=== PATIENT | male | born 1955 | race African-American/Black ===

== ENCOUNTER 2021-10-14 11:26 | Inpatient (IN) | payer MEDICAID, OTHER ==
[~2021-10-14] VITALS: Ht 180.3 cm; Wt 67.5 kg
[2021-10-14] MEDS: POTASSIUM CHL 10MEQ/50ML 50 ML IV SCH ×6 (00:35→22:15)
[2021-10-14] MEDS: CHOLESTYRAMINE 4 GM POWDER PO SCH (01:30)
[2021-10-14] MEDS ORDERED: ONDANSETRON HCL 4 MG/2 ML VIAL IV ONE (12:15)
[2021-10-14] MEDS ORDERED: PANTOPRAZOLE 40 MG/10 ML VIAL INJ IV ONE ×3 (12:15→21:45)
[2021-10-14] MEDS ORDERED: SODIUM CHLORIDE 0.9% 500 ML IVB ONE (12:15)
[2021-10-14 14:22] LABS: Nucleated Red Blood Cells % 0.1 %; Red Cell Distribution Width 14.5 % (11.8-14.3)
[2021-10-14 14:26] LABS: Basophils # (auto) 0.1 10 ^3/uL (0-0.2); Basophils % (auto) 0.7 % (0.0-2.0); Eosinophils # (auto) 0.2 10 ^3/uL (0-0.8); Eosinophils % (auto) 1.2 % (0.0-7.0); Hematocrit 25.4 % (41.0-53.0); Hemoglobin 8.8 g/dL (13.5-17.5); Lymphocytes # (auto) 2.3 10 ^3/uL (0.4-5.4); Lymphocytes % (auto) 14.9 % (10.0-50.0); Mean Corpuscular Hemoglobin 39.2 pg (28.0-32.0); Mean Corpuscular Hgb Conc. 34.6 g/dL (32.0-36.0); Mean Corpuscular Volume 113.3 fL (80.0-100.0); Monocytes % (auto) 12.8 % (0.0-12.0); Neutrophils # (auto) 10.9 10 ^3/uL (1.6-8.6); Neutrophils % (auto) 70.4 % (37.0-80.0); Red Blood Cells 2.24 10^6/uL (4.5-5.90); White Blood Cell 15.4 10^3/uL (4.4-10.8)
[2021-10-14 14:56] LABS: Albumin 2.1 g/dL (3.4-5.0); Calcium 9.2 mg/dL (8.5-10.1)
[2021-10-14 14:57] LABS: INR 1.31 (0.9-1.15); Partial Thromboplastin Time 26.8 sec (23.6-33.0)
[2021-10-14 15:47] LABS: BUN/Creatinine Ratio 22.4
[2021-10-14 15:48] LABS: Bilirubin, Total 25.2 mg/dL (0.2-1.0); Total Protein 5.6 g/dL (6.4-8.2)
[2021-10-14 15:53] LABS: Potassium 2.9 mmol/L (3.5-5.1)
[2021-10-14] MEDS ORDERED: NITROGLYCERIN 0.4 MG SL TAB SL PRN ×2 (19:15→22:00)
[2021-10-14] MEDS: MORPHINE SULFATE INJECTION 2 MG/ML SYRG IV PRN (20:19)
[2021-10-14] MEDS: D5W/ SOD CHL 0.9%/KCL 20MEQ 1,000 ML IV SCH (21:49)
[2021-10-14] MEDS ORDERED: LORazepam 0.5 MG TAB PO PRN (22:00)
[2021-10-14] MEDS ORDERED: PIPERACILLIN-TAZOB 3.375GM 100 ML IV SCH ×2 (22:00→22:23)
[2021-10-14] MEDS ORDERED: MORPHINE SULFATE INJECTION 2 MG/ML SYRG IV PRN (22:00)
[2021-10-14] MEDS ORDERED: CHOLESTYRAMINE 4 GM POWDER PO ONE (22:00)
[2021-10-14] MEDS ORDERED: ALUM & MAG HYDROX-SIMETH LIQ(MAALOX) 30 ML PO PRN (22:00)
[2021-10-14] MEDS ORDERED: DOCUSATE SOD 100 MG CAP PO PRN (22:00)
[2021-10-14] MEDS ORDERED: PIPERACILLIN-TAZOB 2.25GM 50 ML IV ONE (22:00)
[2021-10-14] MEDS: PANTOPRAZOLE 40 MG/10 ML VIAL INJ IV SCH (22:30)
[2021-10-14 22:35] VITALS: BP 105/65
[2021-10-14 23:11] LABS: HDL Cholesterol 10 mg/dL (40-59); Triglycerides 222 mg/dL (< 150)
[2021-10-14 23:26] LABS: Urine Bacteria FEW /hpf (None Seen); Urine Blood TRACE /uL (Negative); Urine Mucus FEW (None Seen); Urine Specific Gravity 1.018 (1.001-1.035); Urine WBC 11 /hpf (0 - 3)
[2021-10-14 23:40] LABS: Cholesterol 460 mg/dL (< 200); LDL Cholesterol > 300 mg/dL (< 100)
[2021-10-14 23:58] LABS: Alcohol, Urine < 3.0 mg/dL (0-10); Amphetamine Screen, Urine POSITIVE (NEGATIVE); Barbiturate Scree,Urine NEGATIVE (NEGATIVE); Benzodiazephine Screen, Urine NEGATIVE (NEGATIVE); Cannabinoid Screen, Urine POSITIVE (NEGATIVE); Opiate Scree,Urine NEGATIVE (NEGATIVE); Phencyclidine Screen, Urine NEGATIVE (NEGATIVE)
[2021-10-15] VITALS (8 sets, daily range): BP systolic 95–133; BP diastolic 44–79
[2021-10-15 00:06] LABS: Cocaine Screen, Urine NEGATIVE (NEGATIVE)
[2021-10-15] MEDS: POTASSIUM CHL 10MEQ/50ML 50 ML IV SCH (00:15)
[2021-10-15 09:10] LABS: Mean Corpuscular Hemoglobin 38.9 pg (28.0-32.0); Mean Corpuscular Hgb Conc. 34.2 g/dL (32.0-36.0); Red Blood Cells 1.63 10^6/uL (4.5-5.90); White Blood Cell 18.5 10^3/uL (4.4-10.8)
[2021-10-15] MEDS: PANTOPRAZOLE 40 MG/10 ML VIAL INJ IV SCH ×2 (09:10→21:38)
[2021-10-15] MEDS: PIPERACILLIN-TAZOB 3.375GM 100 ML IV SCH ×3 (09:10→20:09)
[2021-10-15 09:15] LABS: Hematocrit 18.6 % (41.0-53.0); Mean Corpuscular Volume 113.9 fL (80.0-100.0); Red Cell Distribution Width 14.8 % (11.8-14.3)
[2021-10-15 09:21] LABS: INR 1.38 (0.9-1.15); Partial Thromboplastin Time 29.3 sec (23.6-33.0)
[2021-10-15 09:27] LABS: Albumin 1.7 g/dL (3.4-5.0); Calcium 8.6 mg/dL (8.5-10.1); Magnesium 2.8 mg/dL (1.6-2.6); Potassium 3.9 mmol/L (3.5-5.1)
[2021-10-15 09:29] LABS: BUN/Creatinine Ratio 28.7
[2021-10-15 09:31] LABS: Band Neutrophils % (manual) 0; Basophils % (manual) 0 (0.0-2.0); Blast Cells 0; Hemoglobin 6.3 g/dL (13.5-17.5); Lymphocytes % (manual) 0 (10.0-50.0); Myelocytes % 0; Promyelocytes % 0; Reactive Lymphocytes 0
[2021-10-15 09:54] LABS: Bilirubin, Total 18.9 mg/dL (0.2-1.0); Phosphorus 3.3 mg/dL (2.5-4.90); Total Protein 4.9 g/dL (6.4-8.2)
[2021-10-15] MEDS ORDERED: PANTOPRAZOLE 40 MG/10 ML VIAL INJ IV SCH (10:00)
[2021-10-15] MEDS: CHOLESTYRAMINE 4 GM POWDER PO SCH (11:50)
[2021-10-15 13:00] LABS: Eosinophils % (manual) 1 (0-7); Metamyelocytes % 1; Monocytes % (manual) 5 (0-12)
[2021-10-15] MEDS: D5W/ SOD CHL 0.9%/KCL 20MEQ 1,000 ML IV SCH ×2 (18:54→20:59)
[2021-10-15 19:22] LABS: Hemoglobin 7.7 g/dL (13.5-17.5); Red Blood Cells 2.15 10^6/uL (4.5-5.90)
[2021-10-15 19:25] LABS: Hematocrit 22.3 % (41.0-53.0); Mean Corpuscular Hemoglobin 35.9 pg (28.0-32.0); Mean Corpuscular Hgb Conc. 34.5 g/dL (32.0-36.0); White Blood Cell 17.1 10^3/uL (4.4-10.8)
[2021-10-15 19:33] LABS: Red Cell Distribution Width 26.8 % (11.8-14.3)
[2021-10-15 19:34] LABS: Basophils % (manual) 0 (0.0-2.0); Blast Cells 0; Eosinophils % (manual) 0 (0-7); Metamyelocytes % 0; Myelocytes % 0; Promyelocytes % 0; Reactive Lymphocytes 0
[2021-10-15 20:10] LABS: Band Neutrophils % (manual) 1; Lymphocytes % (manual) 3 (10.0-50.0); Monocytes % (manual) 4 (0-12)
[2021-10-16] MEDS: PIPERACILLIN-TAZOB 3.375GM 100 ML IV SCH ×4 (01:30→20:04)
[2021-10-16 05:00] VITALS: BP 112/67
[2021-10-16 05:49] LABS: Hemoglobin 7.6 g/dL (13.5-17.5); Mean Corpuscular Hemoglobin 35.9 pg (28.0-32.0); Mean Corpuscular Hgb Conc. 34.3 g/dL (32.0-36.0); Mean Corpuscular Volume 104.8 fL (80.0-100.0); White Blood Cell 17.2 10^3/uL (4.4-10.8)
[2021-10-16 05:59] LABS: Red Cell Distribution Width 26.5 % (11.8-14.3)
[2021-10-16 06:00] LABS: Basophils % (manual) 0 (0.0-2.0); Blast Cells 0; Metamyelocytes % 0; Myelocytes % 0; Promyelocytes % 0; Reactive Lymphocytes 0
[2021-10-16 06:03] LABS: Calcium 8.3 mg/dL (8.5-10.1); Potassium 3.6 mmol/L (3.5-5.1)
[2021-10-16 06:07] LABS: Albumin 1.6 g/dL (3.4-5.0); BUN/Creatinine Ratio 20.8
[2021-10-16 06:23] LABS: Bilirubin, Total 15.6 mg/dL (0.2-1.0); Total Protein 4.7 g/dL (6.4-8.2)
[2021-10-16] MEDS: D5W/ SOD CHL 0.9%/KCL 20MEQ 1,000 ML IV SCH ×2 (06:30→20:04)
[2021-10-16 09:00] VITALS: BP 120/67
[2021-10-16] MEDS: PANTOPRAZOLE 40 MG/10 ML VIAL INJ IV SCH ×2 (09:33→21:14)
[2021-10-16 10:26] VITALS: BP 120/67
[2021-10-16 12:56] LABS: Band Neutrophils % (manual) 4; Eosinophils % (manual) 3 (0-7); Lymphocytes % (manual) 7 (10.0-50.0); Monocytes % (manual) 5 (0-12)
[2021-10-16 13:00] VITALS: BP 120/65
[2021-10-16 17:00] VITALS: BP 111/59
[2021-10-16] MEDS: MORPHINE SULFATE INJECTION 2 MG/ML SYRG IV PRN (22:29)
[2021-10-16 22:40] VITALS: BP 123/70
[2021-10-17] VITALS (13 sets, daily range): BP systolic 108–151; BP diastolic 56–100
[2021-10-17] MEDS: PIPERACILLIN-TAZOB 3.375GM 100 ML IV SCH ×4 (01:15→21:45)
[2021-10-17 07:05] LABS: Hematocrit 26.5 % (41.0-53.0); Hemoglobin 8.8 g/dL (13.5-17.5); Mean Corpuscular Hgb Conc. 33.3 g/dL (32.0-36.0); Mean Corpuscular Volume 108.2 fL (80.0-100.0); Red Blood Cells 2.45 10^6/uL (4.5-5.90); White Blood Cell 18.7 10^3/uL (4.4-10.8)
[2021-10-17 07:07] LABS: Potassium 3.8 mmol/L (3.5-5.1)
[2021-10-17 07:08] LABS: Red Cell Distribution Width 26.2 % (11.8-14.3)
[2021-10-17 07:11] LABS: Basophils % (manual) 0 (0.0-2.0); Blast Cells 0; Metamyelocytes % 0; Myelocytes % 0; Promyelocytes % 0; Reactive Lymphocytes 0
[2021-10-17 07:12] LABS: Albumin 1.6 g/dL (3.4-5.0); BUN/Creatinine Ratio 12.5; Calcium 8.1 mg/dL (8.5-10.1)
[2021-10-17 07:28] LABS: Bilirubin, Total 16.6 mg/dL (0.2-1.0); Total Protein 4.6 g/dL (6.4-8.2)
[2021-10-17] MEDS: PANTOPRAZOLE 40 MG/10 ML VIAL INJ IV SCH ×2 (09:44→21:45)
[2021-10-17] MEDS: MORPHINE SULFATE INJECTION 2 MG/ML SYRG IV PRN ×2 (09:45→21:45)
[2021-10-17] MEDS ORDERED: fentaNYL CITRATE 100 MCG/2 ML VL IV ONE (11:15)
[2021-10-17] MEDS ORDERED: MIDAZOLAM HCL 2MG/2ML 2ml VIAL (1mg/ml) IV ONE (11:15)
[2021-10-17] MEDS ORDERED: LIDOCAINE 2%HCL (LOCAL ANESTH.) INJ 20ML MDV ONE ×4 (11:15→15:38)
[2021-10-17] MEDS ORDERED: GELATIN 1 SPONGE SIZE 50 TOP ONE (11:27)
[2021-10-17] MEDS ORDERED: IODIXANOL 320MG/ML 100ML BTL IV ONE ×2 (12:48→15:23)
[2021-10-17 13:36] LABS: Band Neutrophils % (manual) 2; Eosinophils % (manual) 2 (0-7); Lymphocytes % (manual) 3 (10.0-50.0); Monocytes % (manual) 6 (0-12)
[2021-10-17] MEDS ORDERED: MIDAZOLAM HCL 2MG/2ML 2ml VIAL (1mg/ml) ONE (14:41)
[2021-10-17] MEDS ORDERED: fentaNYL CITRATE 100 MCG/2 ML VL ONE (14:41)
[2021-10-17] MEDS ORDERED: IOHEXOL 350 MG/ML 100ML IJ ONE (14:46)
[2021-10-17] MEDS ORDERED: HYDROmorphone HCL 2 MG/ML VL ONE (15:27)
[2021-10-17] MEDS: D5W/ SOD CHL 0.9%/KCL 20MEQ 1,000 ML IV SCH (17:48)
[2021-10-18] MEDS: METOCLOPRAMIDE HCL 5MG/ml INJ 2ml VIAL IV PRN ×3 (02:41→11:53)
[2021-10-18 05:00] VITALS: BP 107/61
[2021-10-18] MEDS: PIPERACILLIN-TAZOB 3.375GM 100 ML IV SCH ×3 (06:44→23:44)
[2021-10-18 08:31] LABS: Potassium 4.3 mmol/L (3.5-5.1)
[2021-10-18 08:38] LABS: Hemoglobin 9.1 g/dL (13.5-17.5); Mean Corpuscular Hgb Conc. 32.9 g/dL (32.0-36.0)
[2021-10-18 08:40] LABS: Hematocrit 27.5 % (41.0-53.0); Mean Corpuscular Volume 109.3 fL (80.0-100.0); Red Blood Cells 2.52 10^6/uL (4.5-5.90); Red Cell Distribution Width 25.6 % (11.8-14.3)
[2021-10-18 08:43] LABS: Basophils % (manual) 0 (0.0-2.0); Blast Cells 0; Eosinophils % (manual) 0 (0-7); Metamyelocytes % 0; Myelocytes % 0; Promyelocytes % 0; Reactive Lymphocytes 0
[2021-10-18 09:00] VITALS: BP 140/77
[2021-10-18 09:10] LABS: Albumin 1.8 g/dL (3.4-5.0); BUN/Creatinine Ratio 16.5; Bilirubin, Total 19.3 mg/dL (0.2-1.0); Calcium 8.5 mg/dL (8.5-10.1); Total Protein 5.4 g/dL (6.4-8.2)
[2021-10-18] MEDS: PANTOPRAZOLE 40 MG/10 ML VIAL INJ IV SCH ×2 (10:06→22:15)
[2021-10-18 13:17] VITALS: BP 133/71
[2021-10-18 13:35] LABS: Band Neutrophils % (manual) 1; Lymphocytes % (manual) 5 (10.0-50.0); Monocytes % (manual) 4 (0-12)
[2021-10-18 17:00] VITALS: BP 134/71
[2021-10-18] MEDS: MORPHINE SULFATE INJECTION 2 MG/ML SYRG IV PRN (20:47)
[2021-10-18] MEDS: D5W/ SOD CHL 0.9%/KCL 20MEQ 1,000 ML IV SCH (20:48)
[2021-10-18 21:53] VITALS: BP 130/72
[2021-10-19 05:00] VITALS: BP 119/70
[2021-10-19] MEDS: PIPERACILLIN-TAZOB 3.375GM 100 ML IV SCH ×3 (05:43→17:41)
[2021-10-19] MEDS: D5W/ SOD CHL 0.9%/KCL 20MEQ 1,000 ML IV SCH ×3 (05:55→21:48)
[2021-10-19] MEDS: MORPHINE SULFATE INJECTION 2 MG/ML SYRG IV PRN ×3 (06:00→21:48)
[2021-10-19 07:50] LABS: Hemoglobin 7.8 g/dL (13.5-17.5)
[2021-10-19 07:53] LABS: Hematocrit 23.3 % (41.0-53.0); Mean Corpuscular Hemoglobin 36.1 pg (28.0-32.0); Mean Corpuscular Hgb Conc. 33.3 g/dL (32.0-36.0); Mean Corpuscular Volume 108.5 fL (80.0-100.0); Red Blood Cells 2.15 10^6/uL (4.5-5.90); Red Cell Distribution Width 24.5 % (11.8-14.3); White Blood Cell 18.5 10^3/uL (4.4-10.8)
[2021-10-19 07:57] LABS: Basophils % (manual) 0 (0.0-2.0); Blast Cells 0; Metamyelocytes % 0; Myelocytes % 0; Promyelocytes % 0; Reactive Lymphocytes 0
[2021-10-19 07:59] LABS: Potassium 3.6 mmol/L (3.5-5.1)
[2021-10-19 08:03] LABS: Albumin 1.6 g/dL (3.4-5.0); BUN/Creatinine Ratio 16.3; Bilirubin, Total 12.6 mg/dL (0.2-1.0); Calcium 8.4 mg/dL (8.5-10.1)
[2021-10-19 08:37] VITALS: BP 119/67
[2021-10-19 08:55] LABS: Band Neutrophils % (manual) 1; Eosinophils % (manual) 4 (0-7); Lymphocytes % (manual) 5 (10.0-50.0); Monocytes % (manual) 7 (0-12)
[2021-10-19] MEDS: PANTOPRAZOLE 40 MG/10 ML VIAL INJ IV SCH ×2 (10:27→22:00)
[2021-10-19] MEDS: METOCLOPRAMIDE HCL 5MG/ml INJ 2ml VIAL IV PRN ×3 (10:33→21:49)
[2021-10-19 12:23] VITALS: BP 126/74
[2021-10-19 17:00] VITALS: BP 167/108
[2021-10-19 22:00] VITALS: BP 135/73
[2021-10-20] MEDS: PIPERACILLIN-TAZOB 3.375GM 100 ML IV SCH ×4 (00:31→17:18)
[2021-10-20] MEDS: MORPHINE SULFATE INJECTION 2 MG/ML SYRG IV PRN ×4 (02:20→22:01)
[2021-10-20] MEDS: METOCLOPRAMIDE HCL 5MG/ml INJ 2ml VIAL IV PRN ×4 (02:24→21:59)
[2021-10-20 05:00] VITALS: BP 119/75
[2021-10-20 07:02] LABS: Hematocrit 25.1 % (41.0-53.0); Hemoglobin 8.3 g/dL (13.5-17.5); Mean Corpuscular Hemoglobin 36.1 pg (28.0-32.0); Mean Corpuscular Hgb Conc. 33.2 g/dL (32.0-36.0); Mean Corpuscular Volume 108.7 fL (80.0-100.0); Red Blood Cells 2.31 10^6/uL (4.5-5.90); White Blood Cell 17.2 10^3/uL (4.4-10.8)
[2021-10-20 07:15] LABS: Albumin 1.7 g/dL (3.4-5.0); BUN/Creatinine Ratio 17.8; Calcium 8.4 mg/dL (8.5-10.1); Potassium 3.6 mmol/L (3.5-5.1)
[2021-10-20 07:19] LABS: Red Cell Distribution Width 24.1 % (11.8-14.3)
[2021-10-20 07:20] LABS: Basophils % (manual) 0 (0.0-2.0); Blast Cells 0; Eosinophils % (manual) 0 (0-7); Metamyelocytes % 0; Myelocytes % 0; Promyelocytes % 0; Reactive Lymphocytes 0
[2021-10-20 07:29] LABS: Bilirubin, Total 13.4 mg/dL (0.2-1.0); Total Protein 5.1 g/dL (6.4-8.2)
[2021-10-20 09:00] VITALS: BP 127/80
[2021-10-20 09:16] LABS: Band Neutrophils % (manual) 1; Lymphocytes % (manual) 2 (10.0-50.0); Monocytes % (manual) 5 (0-12)
[2021-10-20] MEDS: PANTOPRAZOLE 40 MG/10 ML VIAL INJ IV SCH ×2 (09:54→22:01)
[2021-10-20 13:00] VITALS: BP 132/69
[2021-10-20 17:00] VITALS: BP 138/77
[2021-10-20 21:00] VITALS: BP 142/66
[2021-10-20] MEDS: D5W/ SOD CHL 0.9%/KCL 20MEQ 1,000 ML IV SCH (23:13)
[2021-10-21] MEDS: PIPERACILLIN-TAZOB 3.375GM 100 ML IV SCH ×4 (00:39→17:58)
[2021-10-21] MEDS: MORPHINE SULFATE INJECTION 2 MG/ML SYRG IV PRN ×5 (02:06→22:52)
[2021-10-21] MEDS: METOCLOPRAMIDE HCL 5MG/ml INJ 2ml VIAL IV PRN ×3 (02:07→16:35)
[2021-10-21 04:00] VITALS: BP 144/80
[2021-10-21 09:00] VITALS: BP 145/89
[2021-10-21] MEDS: PANTOPRAZOLE 40 MG/10 ML VIAL INJ IV SCH ×2 (09:08→22:44)
[2021-10-21] MEDS ORDERED: ONDANSETRON HCL 4 MG/2 ML VIAL IV PRN (12:15)
[2021-10-21] MEDS: ONDANSETRON HCL 4 MG/2 ML VIAL IV PRN ×2 (12:57→22:51)
[2021-10-21 13:00] VITALS: BP 155/78
[2021-10-21] MEDS: D5W/ SOD CHL 0.9%/KCL 20MEQ 1,000 ML IV SCH (13:03)
[2021-10-21 17:00] VITALS: BP 152/83
[2021-10-21 20:00] VITALS: BP 135/83
[2021-10-21 22:00] VITALS: BP 135/83
[2021-10-22] MEDS: PIPERACILLIN-TAZOB 3.375GM 100 ML IV SCH ×5 (00:02→23:53)
[2021-10-22] MEDS: D5W/ SOD CHL 0.9%/KCL 20MEQ 1,000 ML IV SCH (00:35)
[2021-10-22] MEDS: METOCLOPRAMIDE HCL 5MG/ml INJ 2ml VIAL IV PRN ×2 (00:47→20:20)
[2021-10-22] MEDS: PANTOPRAZOLE 40 MG/10 ML VIAL INJ IV SCH ×2 (08:25→21:03)
[2021-10-22] MEDS: MORPHINE SULFATE INJECTION 2 MG/ML SYRG IV PRN ×2 (08:27→21:05)
[2021-10-22 09:00] VITALS: BP 146/70
[2021-10-22 11:18] LABS: INR 2.36 (0.9-1.15); Partial Thromboplastin Time 34.1 sec (23.6-33.0)
[2021-10-22 13:00] VITALS: BP 141/70
[2021-10-22 16:48] VITALS: BP 115/80
[2021-10-22] MEDS: ONDANSETRON HCL 4 MG/2 ML VIAL IV PRN (21:05)
[2021-10-22 22:00] VITALS: BP 147/79
[2021-10-23] VITALS (7 sets, daily range): BP systolic 112–129; BP diastolic 62–87
[2021-10-23] MEDS: D5W/ SOD CHL 0.9%/KCL 20MEQ 1,000 ML IV SCH ×3 (03:15→16:35)
[2021-10-23] MEDS: MORPHINE SULFATE INJECTION 2 MG/ML SYRG IV PRN ×3 (03:43→22:30)
[2021-10-23] MEDS: PIPERACILLIN-TAZOB 3.375GM 100 ML IV SCH ×3 (05:09→18:00)
[2021-10-23] MEDS: PANTOPRAZOLE 40 MG/10 ML VIAL INJ IV SCH ×2 (09:41→21:19)
[2021-10-23] MEDS ORDERED: IODIXANOL 320MG/ML 100ML BTL IV ONE (14:39)
[2021-10-23] MEDS ORDERED: LIDOCAINE 2%HCL (LOCAL ANESTH.) INJ 20ML MDV ONE ×2 (14:39→15:39)
[2021-10-23] MEDS ORDERED: fentaNYL CITRATE 100 MCG/2 ML VL ONE ×2 (14:45→15:20)
[2021-10-23] MEDS ORDERED: MIDAZOLAM HCL 2MG/2ML 2ml VIAL (1mg/ml) ONE (15:20)
[2021-10-23] MEDS ORDERED: HYDROmorphone HCL 2 MG/ML VL ONE (16:05)
[2021-10-24] MEDS: PIPERACILLIN-TAZOB 3.375GM 100 ML IV SCH ×2 (00:04→06:18)
[2021-10-24 04:30] VITALS: BP 125/70
[2021-10-24] MEDS: D5W/ SOD CHL 0.9%/KCL 20MEQ 1,000 ML IV SCH (06:18)
[2021-10-24 07:13] LABS: Potassium 4.4 mmol/L (3.5-5.1)
[2021-10-24 07:27] LABS: BUN/Creatinine Ratio 24.8; Calcium 8.9 mg/dL (8.5-10.1)
[2021-10-24] MEDS: METOCLOPRAMIDE HCL 5MG/ml INJ 2ml VIAL IV PRN (08:50)
[2021-10-24] MEDS: MORPHINE SULFATE INJECTION 2 MG/ML SYRG IV PRN (08:50)
[2021-10-24 09:00] VITALS: BP 117/76
[2021-10-24] MEDS ORDERED: ONDA-144 PO (10:03)
[2021-10-24] MEDS ORDERED: TRAM50TA2 PO (10:04)
[2021-10-24] MEDS: PANTOPRAZOLE 40 MG/10 ML VIAL INJ IV SCH (11:30)
[2021-10-24 13:00] VITALS: BP 117/70
== END 2021-10-24 14:10 | disposition home or self-care (01) | DRG 710 ==
LOC: EDBD 11:26 → ER 11:26 → TELE 19:11 → TELE-CENTR 22:35
PROVIDERS: ADMIT Hospitalist; ATTEND Family Medicine
PROC: 30233N1 Transfusion of Nonautologous Red Blood Cells into Peripheral Vein, Percutaneous Approach (ICD-10-PCS; 2021-10-15)
PROC: 0FB03ZX Excision of Liver, Percutaneous Approach, Diagnostic (ICD-10-PCS; 2021-10-17)
PROC: BF10YZZ Fluoroscopy of Bile Ducts using Other Contrast (ICD-10-PCS; 2021-10-17)
PROC: 0F9930Z Drainage of Common Bile Duct with Drainage Device, Percutaneous Approach (ICD-10-PCS; 2021-10-17)
PROC: BF40ZZZ Ultrasonography of Bile Ducts (ICD-10-PCS; 2021-10-17)
PROC: 05H933Z Insertion of Infusion Device into Right Brachial Vein, Percutaneous Approach (ICD-10-PCS; 2021-10-18)
PROC: B54MZZA Ultrasonography of Right Upper Extremity Veins, Guidance (ICD-10-PCS; 2021-10-18)
PROC: 0FPB3DZ Removal of Intraluminal Device from Hepatobiliary Duct, Percutaneous Approach (ICD-10-PCS; principal; 2021-10-23)
PROC: 0F793DZ Dilation of Common Bile Duct with Intraluminal Device, Percutaneous Approach (ICD-10-PCS; 2021-10-23)
PROC: BF10YZZ Fluoroscopy of Bile Ducts using Other Contrast (ICD-10-PCS; 2021-10-23)
PROC: BF40ZZZ Ultrasonography of Bile Ducts (ICD-10-PCS; 2021-10-23)
DX: A41.9 Sepsis, unspecified organism (principal); R65.21 Severe sepsis with septic shock; K85.90 Acute pancreatitis without necrosis or infection, unspecified; E43 Unspecified severe protein-calorie malnutrition; D68.9 Coagulation defect, unspecified; K92.0 Hematemesis; C25.9 Malignant neoplasm of pancreas, unspecified; D62 Acute posthemorrhagic anemia; K80.21 Calculus of gallbladder without cholecystitis with obstruction; C78.7 Secondary malignant neoplasm of liver and intrahepatic bile duct; E87.6 Hypokalemia; K21.9 Gastro-esophageal reflux disease without esophagitis; F10.10 Alcohol abuse, uncomplicated; K29.20 Alcoholic gastritis without bleeding; N18.9 Chronic kidney disease, unspecified; R79.89 Other specified abnormal findings of blood chemistry; N40.0 Benign prostatic hyperplasia without lower urinary tract symptoms; F17.210 Nicotine dependence, cigarettes, uncomplicated; F15.10 Other stimulant abuse, uncomplicated; Z20.822 Contact with and (suspected) exposure to COVID-19; F12.10 Cannabis abuse, uncomplicated; Z68.21 Body mass index [BMI] 21.0-21.9, adult; Z82.3 Family history of stroke; Z83.3 Family history of diabetes mellitus; Z71.51 Drug abuse counseling and surveillance of drug abuser; Z71.6 Tobacco abuse counseling
CPT/HCPCS: 10005; 36415; 36600; 47532; 74150; 74176; 76000; 76942; 77012; 80048; 80053; 80061; 80307; 81001; 82105; 82150; 82378; 82805; 83036; 83615; 83690; 83735; 83880; 84100; 84484; 85007; 85025; 85027; 85379; 85610; 85730; 86301; 86850; 86900; 86901; 86920; 87040; 87205; 87426; 93005; 96361; 96374; 96375; 99152; 99153; C1729; C9113; G0378; J2250; J2405; J2543; Q9967

== ENCOUNTER 2021-10-24 22:44 | Inpatient (IN) | payer MEDICAID ==
[~2021-10-24] VITALS: Ht 180.3 cm; Wt 65.2 kg
[~2021-10-24 22:44] MED LIST: ONDA-144 PO; TRAM50TA2 PO
[2021-10-25 01:51] LABS: White Blood Cell 19.1 10^3/uL (4.4-10.8)
[2021-10-25 01:53] LABS: Hematocrit 26.5 % (41.0-53.0); Hemoglobin 8.2 g/dL (13.5-17.5); Mean Corpuscular Hemoglobin 35.6 pg (28.0-32.0); Mean Corpuscular Volume 114.8 fL (80.0-100.0); Red Blood Cells 2.31 10^6/uL (4.5-5.90); Red Cell Distribution Width 23.2 % (11.8-14.3)
[2021-10-25 01:55] LABS: Basophils % (manual) 0 (0.0-2.0); Blast Cells 0; Eosinophils % (manual) 0 (0-7); Metamyelocytes % 0; Myelocytes % 0; Promyelocytes % 0; Reactive Lymphocytes 0
[2021-10-25 02:06] LABS: Albumin 1.6 g/dL (3.4-5.0); BUN/Creatinine Ratio 21.7; Magnesium 2.6 mg/dL (1.6-2.6)
[2021-10-25 02:09] LABS: Bilirubin, Total 12.3 mg/dL (0.2-1.0)
[2021-10-25] MEDS ORDERED: SODIUM CHLORIDE 0.9% 1,000 ML IV ONE (02:15)
[2021-10-25] MEDS ORDERED: HYDROmorphone HCL 2 MG/ML VL IV ONE (02:15)
[2021-10-25 02:18] LABS: Potassium 2.6 mmol/L (3.5-5.1)
[2021-10-25 03:05] LABS: Band Neutrophils % (manual) 11; Lymphocytes % (manual) 4 (10.0-50.0); Monocytes % (manual) 1 (0-12)
[2021-10-25] MEDS: MAGNESIUM SULFATE 1GM/100ML 100 ML IV SCH ×2 (03:21→04:22)
[2021-10-25] MEDS: POTASSIUM CHL 10MEQ/50ML 50 ML IV SCH ×2 (03:43→05:33)
[2021-10-25] MEDS ORDERED: ONDANSETRON HCL 4 MG/2 ML VIAL IV ONE (04:15)
[2021-10-25] MEDS ORDERED: DOCUSATE SOD 100 MG CAP PO PRN (08:00)
[2021-10-25] MEDS ORDERED: TEMAZEPAM 15 MG CAP PO PRN (08:00)
[2021-10-25] MEDS ORDERED: NITROGLYCERIN 0.4 MG SL TAB SL PRN (08:00)
[2021-10-25] MEDS ORDERED: MORPHINE SULFATE INJECTION 2 MG/ML SYRG IV PRN ×2 (08:00)
[2021-10-25] MEDS ORDERED: HYDROcodone-ACET 5/325MG TAB PO PRN (08:00)
[2021-10-25] MEDS ORDERED: ACETAMINOPHEN 325 MG TAB PO PRN (08:00)
[2021-10-25] MEDS: HYDROmorphone HCL 2 MG/ML VL IV PRN (08:51)
[2021-10-25] MEDS: ONDANSETRON HCL 4 MG/2 ML VIAL IV PRN ×2 (08:52→20:37)
[2021-10-25] MEDS: SOD CHL 0.45% 1,000 ML IV SCH ×2 (09:00→18:00)
[2021-10-25] MEDS: PIPERACILLIN-TAZOB 2.25GM 50 ML IV SCH ×2 (09:04→17:12)
[2021-10-26] MEDS: ONDANSETRON HCL 4 MG/2 ML VIAL IV PRN (00:55)
[2021-10-26] MEDS: PIPERACILLIN-TAZOB 2.25GM 50 ML IV SCH ×2 (02:51→09:00)
[2021-10-26] MEDS: HYDROmorphone HCL 2 MG/ML VL IV PRN ×2 (03:29→09:00)
[2021-10-26] MEDS: SOD CHL 0.45% 1,000 ML IV SCH (04:00)
[2021-10-26 05:30] VITALS: BP 122/75
[2021-10-26 08:00] VITALS: BP 111/74
[2021-10-26 08:21] LABS: Potassium 3.5 mmol/L (3.5-5.1)
[2021-10-26 08:28] LABS: Albumin 1.9 g/dL (3.4-5.0); BUN/Creatinine Ratio 23.4; Bilirubin, Total 15.8 mg/dL (0.2-1.0); Calcium 7.9 mg/dL (8.5-10.1); Total Protein 5.7 g/dL (6.4-8.2)
[2021-10-26 08:52] LABS: Hematocrit 33.8 % (41.0-53.0); Hemoglobin 10.6 g/dL (13.5-17.5); Mean Corpuscular Hemoglobin 35.1 pg (28.0-32.0); Mean Corpuscular Hgb Conc. 31.4 g/dL (32.0-36.0); Mean Corpuscular Volume 111.7 fL (80.0-100.0); Red Blood Cells 3.03 10^6/uL (4.5-5.90); White Blood Cell 19.4 10^3/uL (4.4-10.8)
[2021-10-26 08:58] LABS: Red Cell Distribution Width 22.6 % (11.8-14.3)
[2021-10-26 09:03] LABS: Basophils % (manual) 0 (0.0-2.0); Blast Cells 0; Eosinophils % (manual) 0 (0-7); Metamyelocytes % 0; Myelocytes % 0; Promyelocytes % 0; Reactive Lymphocytes 0
[2021-10-26 12:00] VITALS: BP 133/49
[2021-10-26 13:50] LABS: Band Neutrophils % (manual) 2; Lymphocytes % (manual) 1 (10.0-50.0); Monocytes % (manual) 2 (0-12)
[2021-10-26 14:28] VITALS: BP 133/49
== END 2021-10-26 17:19 | disposition hospice, home (50) | DRG 281 ==
LOC: EDBD 22:44 → ER 22:44 → EDSEX 22:44 → OVERFLOW 10-25 07:48 → WEST WING 10-25 19:45
PROVIDERS: ADMIT Family Medicine; ATTEND Family Medicine
DX: C25.9 Malignant neoplasm of pancreas, unspecified (principal); N17.9 Acute kidney failure, unspecified; E46 Unspecified protein-calorie malnutrition; K83.1 Obstruction of bile duct; E87.0 Hyperosmolality and hypernatremia; C78.7 Secondary malignant neoplasm of liver and intrahepatic bile duct; E86.0 Dehydration; E83.51 Hypocalcemia; D64.9 Anemia, unspecified; E87.6 Hypokalemia; F17.210 Nicotine dependence, cigarettes, uncomplicated; R79.89 Other specified abnormal findings of blood chemistry; Z20.822 Contact with and (suspected) exposure to COVID-19; N18.9 Chronic kidney disease, unspecified; R62.7 Adult failure to thrive; Z68.20 Body mass index [BMI] 20.0-20.9, adult; Z51.5 Encounter for palliative care; Z82.3 Family history of stroke; Z83.3 Family history of diabetes mellitus; Z85.07 Personal history of malignant neoplasm of pancreas
CPT/HCPCS: 36415; 80053; 83605; 83735; 85007; 85027; 87081; 87426; 96361; 96365; 96366; 96368; 96375; G0378; J2405; J2543